=== PATIENT | female | born 1970 ===

== ENCOUNTER 2024-06-21 06:37 | Day surgery (SDC) | payer OTHER ==
[2024-06-21] MEDS ORDERED: DIPHENHYDRAMINE HCL 50 MG/ML VIAL 1ML IV ONE (11:00)
[2024-06-21] MEDS ORDERED: MIDAZOLAM HCL 2 MG/2 ML VIAL IV ONE (11:00)
[2024-06-21] MEDS ORDERED: fentaNYL CITRATE 50 MCG/ML AMPUL IV PUSH ONE (11:00)
[2024-06-21] MEDS ORDERED: ONDANSETRON HCL 2 MG/ML VIAL IV ONE (11:00)
== END 2024-06-21 13:10 | disposition home or self-care (01) ==
LOC: AMB-ENDOS 06:37 → CIR.AMB 14:45
PROVIDERS: ATTEND Colon & Rectal Surgery
DX: D12.3 Benign neoplasm of transverse colon (principal); K63.5 Polyp of colon; R19.4 Change in bowel habit